=== PATIENT | female | born 1950 | race Hispanic/Latino ===

== ENCOUNTER 2018-04-19 19:48 | Observation (INO) | payer MEDICARE, OTHER ==
--- NOTE | 2018-04-19 20:25 | ED PDOC ---
HPI: Chest Pain Time Seen by Provider: 04/19/18 20:08 Chief Complaint (Nursing): Chest Pain History Per: Patient Onset/Duration Of Symptoms: Days (3) Current Symptoms Are (Timing): Intermittent Episodes Severity: Moderate Quality: Pressure Associated Symptoms: Dyspnea Modifying Factors: None Exacerbating Factors: None Additional Complaint(s): Substernal chest pressure intermittently x 3 days. Has also had left shoulder pain and left sided neck and jaw pain. 1 episode SOB. Denies illness cough or fever. Denies leg pain or swelling. Past Medical History Vital Signs: Last Vital Signs Temp 98.1 F 04/19/18 19:59 Pulse 75 04/19/18 19:59 Resp 18 04/19/18 19:59 BP 178/85 H 04/19/18 19:59 Pulse Ox 98 04/19/18 19:59 - Medical History PMH: Hypercholesterolemia, Hypothyroidism Other PMH: Hypereosinophilia - Family History Family History: States: Unknown Family Hx - Allergies Allergies/Adverse Reactions: Allergies Allergy/AdvReac Type Severity Reaction Status Date / Time No Known Allergies Allergy Verified 04/19/18 20:02 Review of Systems ROS Statement: Except As Marked, All Systems Reviewed And Found Negative Cardiovascular: Positive for: Chest Pain Physical Exam - Reviewed Nursing Documentation Reviewed: Yes Vital Signs Reviewed: Yes - Physical Exam Appears: Positive for: Non-toxic, No Acute Distress Head Exam: Positive for: ATRAUMATIC, NORMAL INSPECTION, NORMOCEPHALIC Skin: Positive for: Normal Color, Warm, DRY Eye Exam: Positive for: EOMI, Normal appearance, PERRL ENT: Positive for: Normal ENT Inspection Neck: Positive for: Normal, Painless ROM Cardiovascular/Chest: Positive for: Regular Rate, Rhythm. Negative for: Chest Non Tender Respiratory: Positive for: CNT, Normal Breath Sounds Gastrointestinal/Abdominal: Positive for: Normal Exam, Soft Back: Positive for: Normal Inspection Extremity: Positive for: Normal ROM. Negative for: Calf Tenderness, Swelling Neurologic/Psych: Positive for: Alert, Oriented - Laboratory Results Result Diagrams: 04/19/18 20:32 04/19/18 20:32 - ECG O2 Sat by Pulse Oximetry: 98 Disposition - Clinical Impression Clinical Impression: Chest pain - Patient ED Disposition Is Patient to be Admitted: Yes - Disposition Disposition Time: 21:16 Condition: FAIR Forms: EDAN (Stateless) - Pt Status Changed To: Hospital Disposition Of: Observation - POA Present On Arrival: None
[2018-04-19 20:40] LABS: BASO % 0.5 % (0.0-2.0); EOS # 0.3 K/uL (0.0-0.7); EOS % 3.7 % (0.0-4.0); HEMOGLOBIN 13.6 g/dL (12.0-16.0); LYMPH # 3.3 K/uL (1.0-4.3); LYMPH % 38.6 % (20.0-40.0); MEAN CELL VOLUME 93.8 fl (81.0-99.0); MEAN CORPUSCULAR HEMOGLOBIN 31.3 pg (27.0-31.0); MEAN CORPUSCULAR HGB CONC 33.4 g/dL (33.0-37.0); MEAN PLATELET VOLUME 7.3 fl (7.2-11.7); MONO # 0.6 K/uL (0.0-0.8); MONO % 7.5 % (0.0-10.0); NEUT # 4.2 K/uL (1.8-7.0); NEUT % 49.7 % (50.0-75.0); NRBC % 0.1 % (0.0-0.0); RBC 4.35 Mil/uL (3.80-5.20); RED CELL DISTRIBUTION WIDTH 13.2 % (11.5-14.5); WHITE BLOOD COUNT 8.5 K/uL (4.8-10.8)
[2018-04-19 20:44] LABS: ALB/GLOB RATIO 1.5 (1.0-2.1); ALBUMIN 4.1 g/dL (3.5-5.0); ALT/SGPT 37 U/L (9-52); AST/SGOT 28 U/L (14-36); BLOOD UREA NITROGEN 19 mg/dl (7-17); CALCIUM 9.1 mg/dL (8.4-10.2); GFR NON-AFRICAN AMERICAN > 60
--- NOTE | 2018-04-19 23:12 | CP.PCM.HP ---
<Daphney Darnell - Last Filed: 04/19/18 23:00> History of Present Illness - History of Present Illness History of Present Illness: 67 y/o female w/ pmhx of hypercholesterolemia and hypothyroidism c/o intermittent chest pressure, 4/10 in severity, that began Friday. She reports having one episode of SOB, one episode of increased discomfort with exertion, and two episodes of pain in the left shoulder and left jaw. She took one dose of Asprin 325mg at 5pm at home today. She denies n/v, diaphoresis, abdominal pain, back pain, numbness, tingling, calf tenderness/swelling. She denies any recent injuries; endorses having carried a 45 lb bag this past week, which is when she first noticed her shoulder pain. She denies any recent illnesses, body aches, sore throat, cough. PMD: Dr. Cathy Ryan in [facility] Pmhx: hypercholesterolemia, hypothyroidism, idiopathic hypereosinophilia (resolved) SurgHx: breast reduction in SocialHx: Moves between [facility] and ID. 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 Previous smoker of 2ppd x 10 years, quit 38 years ago. Social etoh use. Denies recreational drug use. FamHx: Mother had a stroke at age 69. Father at age 86 from complications of C.diff Allergies: NKDA HomeRx: Levothyroxine 100 mcg PO QD, Welchol 625mg PO 6 tablets QD Next of Kin: Spouse, Barrie Shaikh, Code Status: Full Code Present on Admission - Present on Admission Any Indicators Present on Admission: No History of DVT/PE: No History of Uncontrolled Diabetes: No Urinary Catheter: No Decubitus Ulcer Present: No Review of Systems - EENT Eyes: absent: Change in Vision Nose/Mouth/Throat: absent: Nasal Congestion, Sore Throat - Cardiovascular Cardiovascular: Radiating Pain. absent: Chest Pain (chest pressure), Diaphoresis, Dyspnea, Leg Edema, Palpitations, Syncope - Respiratory Respiratory: absent: Cough, Dyspnea - Gastrointestinal Gastrointestinal: absent: Abdominal Pain, Constipation, Diarrhea, Nausea, Vomiting - Musculoskeletal Musculoskeletal: Neck Pain. absent: Back Pain, Numbness, Tingling - Psychiatric Psychiatric: absent: Anxiety, Depression Past Patient History - Infectious Disease Hx of Infectious Diseases: None - Past Medical History & Family History Past Medical History?: Yes - Past Social History Smoking Status: Former Smoker Alcohol: Social Drugs: Denies - CARDIAC Hx Hypercholesterolemia: Yes - ENDOCRINE/METABOLIC Hx Hypothyroidism: Yes - PSYCHIATRIC Hx Substance Use: No - SURGICAL HISTORY Hx Surgeries: Yes Other/Comment: breast reduction - ANESTHESIA Hx Anesthesia: Yes Meds Allergies/Adverse Reactions: Allergies Allergy/AdvReac Type Severity Reaction Status Date / Time No Known Allergies Allergy Verified 04/19/18 20:02 Physical Exam - Constitutional Appears: No Acute Distress, Younger Than Stated Age - ENT Exam ENT Exam: Mucous Membranes Moist - Respiratory Exam Respiratory Exam: Clear to Auscultation Bilateral, NORMAL BREATHING PATTERN - Cardiovascular Exam Cardiovascular Exam: REGULAR RHYTHM, +S1, +S2 - GI/Abdominal Exam GI & Abdominal Exam: Normal Bowel Sounds, Soft. absent: Distended, Tenderness - Extremities Exam Extremities exam: Positive for: normal inspection. Negative for: pedal edema, tenderness - Back Exam Back exam: NORMAL INSPECTION - Neurological Exam Neurological exam: Alert - Psychiatric Exam Psychiatric exam: Normal Affect - Skin Skin Exam: Dry, Intact, Warm Results - Vital Signs Recent Vital Signs: Last Vital Signs Temp 98.1 F 04/19/18 19:59 Pulse 75 04/19/18 19:59 Resp 18 04/19/18 19:59 BP 178/85 H 04/19/18 19:59 Pulse Ox 98 04/19/18 21:16 - Labs Result Diagrams: 04/19/18 20:32 04/19/18 20:32 Labs: Laboratory Results - last 24 hr 04/19/18 04/19/18 20:32 20:32 WBC 8.5 RBC 4.35 Hgb 13.6 Hct 40.8 MCV 93.8 MCH 31.3 H MCHC 33.4 RDW 13.2 Plt Count 293 MPV 7.3 Neut % (Auto) 49.7 L Lymph % (Auto) 38.6 Dawes % (Auto) 7.5 Eos % (Auto) 3.7 Baso % (Auto) 0.5 Neut # (Auto) 4.2 Lymph # (Auto) 3.3 Dawes # (Auto) 0.6 Eos # (Auto) 0.3 Baso # (Auto) 0.0 Sodium 142 Potassium 3.9 Chloride 109 H Carbon Dioxide 23 Anion Gap 14 BUN 19 H Creatinine 0.8 Est GFR ( Amer) > 60 Est GFR (Non-Af Amer) > 60 Random Glucose 107 H Calcium 9.1 Total Bilirubin 0.4 AST 28 ALT 37 Alkaline Phosphatase 75 Troponin I < 0.0120 Total Protein 6.9 Albumin 4.1 Globulin 2.8 Albumin/Globulin Ratio 1.5 Assessment & Plan - Assessment and Plan (Free Text) Assessment: 67 y/o female w/ pmhx of hypercholesterolemia and hypothyroidism admitted w/ c/o chest pressure, r/o acute coronary syndrome. Plan: Chest Pressure Rule out ACS Admit to Telemetry EKG in ED: normal sinus rhythm CXR: no pathological findings Troponin negative x1 Repeat EKG in AM F/u repeat troponins Echo ordered Start Asprin 81 mg PO QD Start Nitroglycerin 0.4 mg SL Q5 PRN x 3 Cardio consulted Tylenol 325mg PO Q6 PRN for mild pain Tylenol 625mg PO Q6 PRN for moderate pain Tramadol 50mg PO Q6 PRN for severe pain Elevated Blood pressure 178/85 in ED Start Metoprolol Tartrate 25mg PO Q12 Monitor vitals Hx of Hypercholesterolemia Lipid panel cont. home med: WellChol Hx of Hypothyroidism Cont. Levothyroxine 100mcg PO QD f/u TSH, T4 levels Diet Heart Healthy DVT prophylaxis Lovenox 40mg SC QD Code Status: Full code - Date & Time Date: 04/19/18 Time: 22:00 <Jhony Perez - Last Filed: 04/20/18 02:33> Results - Vital Signs Recent Vital Signs: Last Vital Signs Temp 98.1 F 04/19/18 19:59 Pulse 68 04/19/18 23:42 Resp 18 04/19/18 23:42 BP 144/81 04/19/18 23:42 Pulse Ox 98 04/19/18 23:42 - Labs Result Diagrams: 04/19/18 20:32 04/19/18 20:32 Labs: Laboratory Results - last 24 hr 04/19/18 04/19/18 20:32 20:32 WBC 8.5 RBC 4.35 Hgb 13.6 Hct 40.8 MCV 93.8 MCH 31.3 H MCHC 33.4 RDW 13.2 Plt Count 293 MPV 7.3 Neut % (Auto) 49.7 L Lymph % (Auto) 38.6 Dawes % (Auto) 7.5 Eos % (Auto) 3.7 Baso % (Auto) 0.5 Neut # (Auto) 4.2 Lymph # (Auto) 3.3 Dawes # (Auto) 0.6 Eos # (Auto) 0.3 Baso # (Auto) 0.0 Sodium 142 Potassium 3.9 Chloride 109 H Carbon Dioxide 23 Anion Gap 14 BUN 19 H Creatinine 0.8 Est GFR ( Amer) > 60 Est GFR (Non-Af Amer) > 60 Random Glucose 107 H Calcium 9.1 Total Bilirubin 0.4 AST 28 ALT 37 Alkaline Phosphatase 75 Troponin I < 0.0120 Total Protein 6.9 Albumin 4.1 Globulin 2.8 Albumin/Globulin Ratio 1.5 Attending/Attestation - Attestation I have personally seen and examined this patient.: Yes I have fully participated in the care of the patient.: Yes I have reviewed all pertinent clinical information: Yes Notes (Text): 04/20/18 00:09 I saw examined and discussed this patient with Dr Darnell. I agree with the assessment and plan outlined above. This is a 67 years old female with hx of HLD, quit smoking 38 years ago, comes with intermittent chest pressure with pain to the left neck and jaw. We will do serial Troponin, EKG, ECHO and lipid panel. Aspirin, Nitroglycerine Sublingual and Metoprolol will be started. Consult Cardiology. Treat elevated Blood pressure with Metoprolol and Hypothyroidism with Levothyroxin. Follow TSH and free T3 T4 Jhony Perez MD
[2018-04-20 06:12] LABS: T4 9.67 ug/dl (5.5-11.0)
[2018-04-20 06:16] LABS: HDL CHOLESTEROL 55 MG/DL (30-70); LDL CHOLESTEROL 139 mg/dL (0-129)
[2018-04-20] MEDS ORDERED: Levothyroxine 100 MCG TAB PO SCH (06:30)
[2018-04-20 08:12] VITALS: RESP 20; O2SAT 98
[2018-04-20] MEDS ORDERED: Enoxaparin 40 mg Syringe SC SCH (09:00)
[2018-04-20] MEDS ORDERED: COLESEVELAM HCL 625 MG PO SCH (09:00)
--- NOTE | 2018-04-20 09:38 | CP.PCM.CON ---
History of Present Illness - History of Present Illness History of Present Illness: 67 y/o female c/o intermittent chest pressure that began Friday not brought on by exercise She reports having one episode of SOB while running for a bus and two episodes of pain in the left shoulder and left jaw not related to exertion She denies n/v, diaphoresis, abdominal pain, back pain, numbness, tingling, calf tenderness/swelling. She endorses having carried a 45 lb bag this past week, which is when she first noticed her shoulder pain. She denies any recent illnesses, body aches, sore throat, cough. EKG: normal sinus rhythm Troponin: neg PMH: Hypercholesterolemia Hypothyroid Past Patient History - Infectious Disease Hx of Infectious Diseases: None - Past Medical History & Family History Past Medical History?: Yes - Past Social History Smoking Status: Former Smoker - CARDIAC Hx Cardiac Disorders: Yes Hx Hypercholesterolemia: Yes - PULMONARY Hx Respiratory Disorders: No - NEUROLOGICAL Hx Neurological Disorder: No - HEENT Hx HEENT Problems: No - RENAL Hx Chronic Kidney Disease: No - ENDOCRINE/METABOLIC Hx Endocrine Disorders: Yes Hx Hypothyroidism: Yes - HEMATOLOGICAL/ONCOLOGICAL Hx Blood Disorders: No - INTEGUMENTARY Hx Dermatological Problems: No - MUSCULOSKELETAL/RHEUMATOLOGICAL Hx Musculoskeletal Disorders: No Hx Falls: No - GASTROINTESTINAL Hx Gastrointestinal Disorders: No - GENITOURINARY/GYNECOLOGICAL Hx Genitourinary Disorders: No - PSYCHIATRIC Hx Psychophysiologic Disorder: No Hx Substance Use: No - SURGICAL HISTORY Hx Surgeries: Yes Other/Comment: breast reduction - ANESTHESIA Hx Anesthesia: Yes Hx Anesthesia Reactions: No Hx Malignant Hyperthermia: No Has any member of the family had a problem w/ anesthesia?: No Meds Allergies/Adverse Reactions: Allergies Allergy/AdvReac Type Severity Reaction Status Date / Time No Known Allergies Allergy Verified 04/19/18 20:02 - Medications Medications: Current Medications Acetaminophen (Tylenol 325mg Tab) 325 mg PO Q6 PRN PRN Reason: Pain, Mild (1-3) Acetaminophen (Tylenol 325mg Tab) 650 mg PO Q6 PRN PRN Reason: Pain, moderate (4-7) Aspirin (Ecotrin) 81 mg PO DAILY [facility] Atorvastatin Calcium (Lipitor) 20 mg PO DAILY [facility] Enoxaparin Sodium (Lovenox) 40 mg SC DAILY [facility]; Protocol Home Med (Colesevelam Hcl [Welchol]) 625 mg PO DAILY [facility] Levothyroxine Sodium (Synthroid) 100 mcg PO DAILY@0630 [facility] Last Admin: 04/20/18 06:56 Dose: 100 mcg Metoprolol Tartrate (Lopressor) 25 mg PO Q12 [facility] Nitroglycerin (Nitrostat Sl Tab) 0.4 mg SL Q5M PRN PRN Reason: chest pain Tramadol HCl (Ultram) 50 mg PO Q6 PRN PRN Reason: Pain, severe (8-10) Results - Vital Signs Recent Vital Signs: Last Vital Signs Temp 98.3 F 04/20/18 08:12 Pulse 84 04/20/18 08:12 Resp 20 04/20/18 08:12 BP 158/76 H 04/20/18 08:12 Pulse Ox 98 04/20/18 08:12 - Labs Result Diagrams: 04/19/18 20:32 04/19/18 20:32 Labs: Laboratory Results - last 24 hr 04/19/18 04/19/18 04/20/18 20:32 20:32 04:30 WBC 8.5 RBC 4.35 Hgb 13.6 Hct 40.8 MCV 93.8 MCH 31.3 H MCHC 33.4 RDW 13.2 Plt Count 293 MPV 7.3 Neut % (Auto) 49.7 L Lymph % (Auto) 38.6 [place] % (Auto) 7.5 Eos % (Auto) 3.7 Baso % (Auto) 0.5 Neut # (Auto) 4.2 Lymph # (Auto) 3.3 [place] # (Auto) 0.6 Eos # (Auto) 0.3 Baso # (Auto) 0.0 APTT 29.5 Sodium 142 Potassium 3.9 Chloride 109 H Carbon Dioxide 23 Anion Gap 14 BUN 19 H Creatinine 0.8 Est GFR ( Amer) > 60 Est GFR (Non-Af Amer) > 60 Random Glucose 107 H Calcium 9.1 Total Bilirubin 0.4 AST 28 ALT 37 Alkaline Phosphatase 75 Troponin I < 0.0120 Total Protein 6.9 Albumin 4.1 Globulin 2.8 Albumin/Globulin Ratio 1.5 Triglycerides Cholesterol LDL Cholesterol Direct HDL Cholesterol Thyroxine (T4) TSH 3rd Generation 04/20/18 04:30 WBC RBC Hgb Hct MCV MCH MCHC RDW Plt Count MPV Neut % (Auto) Lymph % (Auto) [place] % (Auto) Eos % (Auto) Baso % (Auto) Neut # (Auto) Lymph # (Auto) [place] # (Auto) Eos # (Auto) Baso # (Auto) APTT Sodium Potassium Chloride Carbon Dioxide Anion Gap BUN Creatinine Est GFR ( Amer) Est GFR (Non-Af Amer) Random Glucose Calcium Total Bilirubin AST ALT Alkaline Phosphatase Troponin I < 0.0120 Total Protein Albumin Globulin Albumin/Globulin Ratio Triglycerides 162 H Cholesterol 216 H LDL Cholesterol Direct 139 H HDL Cholesterol 55 Thyroxine (T4) 9.67 TSH 3rd Generation 0.90 Assessment & Plan (1) Non-cardiac chest pain Assessment and Plan: Pt's pain appears to be not cardiac in origin she may be discharged to f/u w/ PMD Status: Acute
--- NOTE | 2018-04-20 10:55 | RAD ---
Date of service: 04/19/2018 HISTORY: Chest pain COMPARISON: No prior. TECHNIQUE: Chest PA and lateral FINDINGS: LINES AND TUBES: None. LUNG AND PLEURA: The lungs are well inflated and clear. No pleural effusion or pneumothorax. HEART AND MEDIASTINUM: The heart is not enlarged. No aortic atherosclerotic calcification present. There is unfolding of the aorta. The hilar and mediastinal contours are within normal limits. SKELETAL STRUCTURES: The bony structures are within normal limits for the patient's age. VISUALIZED UPPER ABDOMEN: Normal. OTHER FINDINGS: None. IMPRESSION: No active pulmonary disease.
[2018-04-20 11:46] VITALS: BP 133/80; PULSE 58; TEMP 97.7
--- NOTE | 2018-04-20 14:05 | CP.PCM.DIS ---
Provider - Provider Date of Admission: 04/19/18 21:15 Attending physician: Jhony Perez Primary care physician: Dr. Cathy Ryan Consults: 04/19/18 22:36 Cardiology Consult Routine Comment: Consulting Provider: Giles Ledesma Consulting Physician: Giles Ledesma Reason for Consult: Chest pain, r/o ACS Time Spent in preparation of Discharge (in minutes): 30 Diagnosis - Discharge Diagnosis (1) Chest pain Status: Resolved Comment: -ACS ruled out by neg troponin and EKG. -Stress cardiac test on outpatient recommedned. (2) Hyperlipidemia Status: Chronic Comment: -Re-start home medication. -F/U with PCP Hospital Course - Lab Results Lab Results: Most Recent Lab Values WBC 8.5 K/uL (4.8-10.8) 04/19/18 20:32 RBC 4.35 Mil/uL (3.80-5.20) 04/19/18 20:32 Hgb 13.6 g/dL (12.0-16.0) 04/19/18 20:32 Hct 40.8 % (34.0-47.0) 04/19/18 20:32 MCV 93.8 fl (81.0-99.0) 04/19/18 20:32 MCH 31.3 pg (27.0-31.0) H 04/19/18 20:32 MCHC 33.4 g/dL (33.0-37.0) 04/19/18 20:32 RDW 13.2 % (11.5-14.5) 04/19/18 20:32 Plt Count 293 K/uL (130-400) 04/19/18 20:32 MPV 7.3 fl (7.2-11.7) 04/19/18 20:32 Neut % (Auto) 49.7 % (50.0-75.0) L 04/19/18 20:32 Lymph % (Auto) 38.6 % (20.0-40.0) 04/19/18 20:32 [place] % (Auto) 7.5 % (0.0-10.0) 04/19/18 20:32 Eos % (Auto) 3.7 % (0.0-4.0) 04/19/18 20:32 Baso % (Auto) 0.5 % (0.0-2.0) 04/19/18 20:32 Neut # (Auto) 4.2 K/uL (1.8-7.0) 04/19/18 20:32 Lymph # (Auto) 3.3 K/uL (1.0-4.3) 04/19/18 20:32 [place] # (Auto) 0.6 K/uL (0.0-0.8) 04/19/18 20:32 Eos # (Auto) 0.3 K/uL (0.0-0.7) 04/19/18 20:32 Baso # (Auto) 0.0 K/uL (0.0-0.2) 04/19/18 20:32 APTT 29.5 Seconds (25.6-37.1) 04/20/18 04:30 D-Dimer, Quantitative < 200 ng/mlDDU (0-230) 04/20/18 09:00 Sodium 142 mmol/l (132-148) 04/19/18 20:32 Potassium 3.9 MMOL/L (3.6-5.0) 04/19/18 20:32 Chloride 109 mmol/L (98-107) H 04/19/18 20:32 Carbon Dioxide 23 mmol/L (22-30) 04/19/18 20:32 Anion Gap 14 (10-20) 04/19/18 20:32 BUN 19 mg/dl (7-17) H 04/19/18 20:32 Creatinine 0.8 mg/dl (0.7-1.2) 04/19/18 20:32 Est GFR ( Amer) > 60 04/19/18 20:32 Est GFR (Non-Af Amer) > 60 04/19/18 20:32 Random Glucose 107 mg/dL (65-105) H 04/19/18 20:32 Calcium 9.1 mg/dL (8.4-10.2) 04/19/18 20:32 Total Bilirubin 0.4 mg/dl (0.2-1.3) 04/19/18 20:32 AST 28 U/L (14-36) 04/19/18 20:32 ALT 37 U/L (9-52) 04/19/18 20:32 Alkaline Phosphatase 75 U/L (38-126) 04/19/18 20:32 Troponin I < 0.0120 ng/mL (0.00-0.120) 04/20/18 10:00 Total Protein 6.9 G/DL (6.3-8.2) 04/19/18 20:32 Albumin 4.1 g/dL (3.5-5.0) 04/19/18 20:32 Globulin 2.8 gm/dL (2.2-3.9) 04/19/18 20:32 Albumin/Globulin Ratio 1.5 (1.0-2.1) 04/19/18 20:32 Triglycerides 162 mg/DL (0-149) H 04/20/18 04:30 Cholesterol 216 mg/dL (0-199) H 04/20/18 04:30 LDL Cholesterol Direct 139 mg/dL (0-129) H 04/20/18 04:30 HDL Cholesterol 55 MG/DL (30-70) 04/20/18 04:30 Thyroxine (T4) 9.67 ug/dl (5.5-11.0) 04/20/18 04:30 TSH 3rd Generation 0.90 mIU/ML (0.46-4.68) 04/20/18 04:30 - Hospital Course Hospital Course: 67 y/o F with a PMHx of hyperlipidemia and hypothyroidism admitted for evaluation of chest pain. EKG: normal sinus rhythm. CXR: no pathological findings Troponin negative x3. Echocardiogram was unremarkable with LVEF of 60-65%. Pt was evaluated by news assignment editor who concluded that chest pain had no cardiac etiology. Pt reported that she has not been taking her HLD medication, Colesevelam 625mg, for 1 month. As per pt, she was not initiated on statins due to Hx of myositis. Pt has declined to be initiated on anti-hypertensive as her systolic BP runs in 110-120s range. Pt reports improvement of chest pressure which are less frequent and less intense than 3 days ago. Pt denies abdominal pain, acid reflux, nausea or vomiting. Pt tolerating PO, afebrile, is discharged with instruction to re-initiate home medication, stress cardiac test as outpatient and f/u with PCP within 1 month. - Date & Time of H&P Date of H&P: 04/19/18 Time of H&P: 23:00 Discharge Exam - Head Exam Head Exam: ATRAUMATIC, NORMAL INSPECTION, NORMOCEPHALIC - Eye Exam Eye Exam: EOMI, Normal appearance - ENT Exam ENT Exam: Mucous Membranes Moist - Neck Exam Neck exam: Full Rom, Normal Inspection - Respiratory Exam Respiratory Exam: Clear to PA & Lateral, NORMAL BREATHING PATTERN. absent: Rales - Cardiovascular Exam Cardiovascular Exam: REGULAR RHYTHM, +S1, +S2 - GI/Abdominal Exam GI & Abdominal Exam: Soft. absent: Distended, Guarding, Hernia, Tenderness - Back Exam Back exam: absent: CVA tenderness (L), CVA tenderness (R) - Neurological Exam Neurological exam: Alert, Normal Gait, Oriented x3 Discharge Plan - Follow Up Plan Condition: FAIR Disposition: HOME/ ROUTINE Instructions: Chest Pain (DC) Additional Instructions: Please follow up with PMD within 1 week for outpatient stress test. Re-initiate home medication immediately.
--- NOTE | 2018-04-20 14:07 | CARD ---
APPROVED REPORT Date of service: 04/20/2018 EXAM: Two-dimensional and M-mode echocardiogram with Doppler and color Doppler. Other Information Quality : GoodRhythm : NSR INDICATION Dyspnea Chest Pain 2D DIMENSIONS IVSd1.26 (0.7-1.1cm)LVDd3.29 (3.9-5.9cm) LVOT Diameter2.04 (1.8-2.4cm)PWd1.03 (0.7-1.1cm) IVSs1.57 (0.8-1.2cm)LVDs2.98 (2.5-4.0cm) FS (%) 9.5 %PWs1.19 (0.8-1.2cm) M-Mode DIMENSIONS Left Atrium (MM)4.09 (2.5-4.0cm)IVSd1.08 (0.7-1.1cm) Aortic Root2.96 (2.2-3.7cm)LVDd4.30 (4.0-5.6cm) Aortic Cusp Exc.1.78 (1.5-2.0cm)PWd0.95 (0.7-1.1cm) IVSs1.24 cmFS (%) 30 % LVDs3.01 (2.0-3.8cm)PWs1.18 cm Aortic Valve AoV Peak Ugjniehw154.7cm/sAoV VTI22.9cmAO Peak GR.5mmHg LVOT Peak Szlmpjzp43.3cm/sLVOT VTI18.84cmAO Mean GR.3mmHg MARYJANE (VMAX)1.50rw2KCF (VTI)1.64cm2 Mitral Valve MV E Yvwbedre35.3cm/sMV DECEL [id number] A Ibfuvfhx68.4cm/s MV [id number]/A ratio0.8MVA (PHT)2.95cm2 TDI Lateral E' Peak V10.51cm/sMedial E' Peak V4.64cm/sE/Lateral E'6.0 E/Medial E'13.6 LEFT VENTRICLE The left ventricle is normal size. There is normal left ventricular wall thickness. The left ventricular systolic function is normal. The estimated ejection fraction is 60-65% No regional wall motion abnormalities noted.. Transmitral Doppler flow pattern is Grade I-abnormal relaxation pattern. No left ventricle thrombus noted on this study. There is no ventricular septal defect visualized. There is no left ventricular aneurysm. There is no mass noted in the left ventricle. RIGHT VENTRICLE The right ventricle is normal size. There is normal right ventricular wall thickness. The right ventricular systolic function is normal. ATRIA The left atrium is mildly dilated. The right atrium size is normal. The interatrial septum is intact with no evidence for an atrial septal defect. AORTIC VALVE The aortic valve is normal in structure. Trace aortic regurgitation is present. There is no aortic valvular stenosis. There is no aortic valvular vegetation. MITRAL VALVE The mitral valve is normal in structure. There is no evidence of mitral valve prolapse. There is no mitral valve stenosis. There is no mitral valve regurgitation noted. TRICUSPID VALVE The tricuspid valve is normal in structure. There is mild tricuspid valve regurgitation noted. There is no tricuspid valve prolapse or vegetation. There is no tricuspid valve stenosis. PULMONIC VALVE The pulmonary valve is normal in structure. There is no pulmonic valvular regurgitation. There is no pulmonic valvular stenosis. GREAT VESSELS The aortic root is normal in size. The ascending aorta is normal in size. The pulmonary artery is normal. The IVC is normal in size and collapses >50% with inspiration. PERICARDIAL EFFUSION There is no pericardial effusion. There is no pleural effusion. <Conclusion> The estimated ejection fraction is 60-65% Transmitral Doppler flow pattern is Grade I-abnormal relaxation pattern. The left atrium is mildly dilated. There is mild tricuspid valve regurgitation noted.
--- NOTE | 2018-04-20 14:49 | CARD ---
APPROVED REPORT Date of service: 04/19/2018 EKG Measurement Heart [id number] <Conclusion> Normal sinus rhythm Left anterior fascicular block Anteroseptal infarct, age undetermined Abnormal ECG
== END 2018-04-20 14:00 | disposition home or self-care (01) ==
LOC: H.ER 19:48 → H.ERHOLD 21:15 → H.TEL 04-20 01:03
PROVIDERS: ADMIT Internal Medicine; ATTEND Internal Medicine
DX: R07.89 Other chest pain (principal); E03.9 Hypothyroidism, unspecified; E78.00 Pure hypercholesterolemia, unspecified; E78.5 Hyperlipidemia, unspecified; M60.9 Myositis, unspecified; Z82.3 Family history of stroke; Z87.891 Personal history of nicotine dependence; M25.512 Pain in left shoulder; R06.02 Shortness of breath; R68.84 Jaw pain
CPT/HCPCS: 36415; 71046; 80053; 80061; 84436; 84443; 84484; 85025; 85378; 85730; 93005; 93306; 96372; 99285; G0378; J1650